=== PATIENT | female | born 1950 | race Caucasian/White ===

== ENCOUNTER 2019-04-23 14:37 | Emergency (ER) | payer MEDICARE, MEDICAID ==
[~2019-04-23] VITALS: Ht 157.5 cm; Wt 88.5 kg
[2019-04-23 15:11] VITALS: BP_SYST 139
--- NOTE | 2019-04-23 15:20 | NUR ---
Patient to ER bed H1 to gown for evaluation. Side rails up.
--- NOTE | 2019-04-23 15:22 | NUR ---
Pt brought by self, A&Ox4, pt presents to ER with L rib pain after stretching yesterday to reach and object , skin pink and warm, cap refill <3, VSS
--- NOTE | 2019-04-23 15:45 | NUR ---
Lydai Yates INTERLOCKING MACHINE OPERATOR at bedside examining patient
[2019-04-23] MEDS ORDERED: IBUPROFEN 800 MG TABLET PO ONE (17:45)
[2019-04-23] MEDS ORDERED: HYDROcodone/ACETAMIN 5-325 MG TAB (NORCO/ VICODIN) PO ONE (18:15)
[2019-04-23 18:40] VITALS: BP_SYST 139
--- NOTE | 2019-04-23 18:40 | NUR ---
Patient given written and verbal discharge instructions and verbalizes understanding. ER MD discussed with patient the results and treatment provided. Patient in stable condition. ID arm band removed. Rx of Motrin given. Patient educated on pain management and to follow up with PMD. Pain Scale 2/10 tolerable for patient . Opportunity for questions provided and answered. Medication side effect fact sheet provided.
== END 2019-04-23 18:40 | disposition home or self-care (01) ==
LOC: SED 14:37
DX: R07.89 Other chest pain (principal); R03.0 Elevated blood-pressure reading, without diagnosis of hypertension
CPT/HCPCS: 71046-TC; 71100; 99283

== ENCOUNTER 2019-10-22 14:29 | Emergency (ER) | payer MEDICARE, OTHER ==
[~2019-10-22] VITALS: Ht 167.6 cm; Wt 102.5 kg
[2019-10-22 14:30] VITALS: BP_SYST 142
--- NOTE | 2019-10-22 15:42 | NUR ---
[facility]
--- NOTE | 2019-10-22 15:45 | NUR ---
ABILIO SHARP examining patient.
--- NOTE | 2019-10-22 16:00 | NUR ---
PATIENT BROUGHT IN COMPLAINING OF LEFT EAR PAIN RADIATING TO HER FACE X 2 WEEKS WITH INTERMITTENT NAUSEA AND DIZZINESS. DENIES ANY PAIN AT THIS TIME. NO OTHER COMPLAINTS/INJURIES PER PATIENT OR NOTED. WILL CONTINUE TO MONITOR
[2019-10-22 16:06] VITALS: BP_SYST 136
--- NOTE | 2019-10-22 16:06 | NUR ---
Patient given written and verbal discharge instructions and verbalizes understanding. ER MECHANICAL DRAWING TEACHER ARON discussed with patient the results and treatment provided. Patient in stable condition. ID arm band removed. Rx of LASIX AND AUGMENTIN given. Patient educated on pain management and to follow up with PMD. Pain Scale 0/10 Opportunity for questions provided and answered. Medication side effect fact sheet provided.
== END 2019-10-22 16:06 | disposition home or self-care (01) ==
LOC: SED 14:29
DX: H66.91 Otitis media, unspecified, right ear (principal); R03.0 Elevated blood-pressure reading, without diagnosis of hypertension; Z76.0 Encounter for issue of repeat prescription
CPT/HCPCS: 99283